=== PATIENT | female | born 1980 | race African-American/Black ===

== ENCOUNTER 2021-04-22 13:26 | Emergency (ER) | payer SELFPAY ==
[~2021-04-22] VITALS: Ht 172.7 cm; Wt 104.3 kg
== END 2021-04-22 14:14 | disposition home or self-care (01) ==
LOC: FSED 14:09
DX: R03.0 Elevated blood-pressure reading, without diagnosis of hypertension (principal); F43.9 Reaction to severe stress, unspecified
CPT/HCPCS: 99283